=== PATIENT | female | born 1960 | race Caucasian/White ===

== ENCOUNTER 2022-10-21 15:01 | Emergency (ER) | payer MEDICARE, MEDICAID ==
[~2022-10-21] VITALS: Ht 154.9 cm; Wt 60.0 kg
[2022-10-21 16:09] VITALS: BP 120/72
== END 2022-10-21 16:13 | disposition home or self-care (01) ==
LOC: ER 15:01
DX: I48.91 Unspecified atrial fibrillation (principal); E11.9 Type 2 diabetes mellitus without complications; Z88.8 Allergy status to other drugs, medicaments and biological substances
CPT/HCPCS: 82948; 93005; 99284